=== PATIENT | female | born 1985 | race Caucasian/White ===

== ENCOUNTER 2021-03-09 06:01 | Day surgery (SDC) | payer OTHER, SELFPAY ==
--- NOTE | 2021-02-21 10:00 | HP.PCM_ITS ---
History and Physical Date of Admission: 03/09/21 HPI: The patient is a 35 year old female presenting for pre-operative visit. She is scheduled for hysteroscopy, dilation and curettage, polyp resection and Mirena IUD insertion, for menorrhagia and endometrial polyp on 02/06/2021. Procedure discussed along with risks, benefits and compl ications. Other alternatives discussed for management. Consent form signed? Yes. ? ? PAST MEDICAL HISTORY PAST MEDICAL HISTORY Diagnosis Date ? Fatty liver disease, nonalcoholic ? ? Hypertension ? ? Hypertensive urgency ? ? Incomplete RBBB ? ? Raynaud phenomenon ? ? Tobacco use ? ? ? PAST SURGICAL HISTORY PAST SURGICAL HISTORY Procedure Laterality Date ? NONE ? CURRENT MEDICATIONS Current Outpatient Medications Medication Sig Dispense Refill ? miSOPROStol (CYTOTEC) 200 mcg tablet Insert 2 tablets vaginally night prior to procedure and 2 tablets morning of procedure. Each dose should be in vagina for 6-8 hours. 4 tablet 0 ? lisinopril (ZESTRIL, PRINIVIL) 20 mg tablet Take 1 tablet by mouth once daily. 90 tablet 1 ? amLODIPine (NORVASC) 5 mg tablet Take 1 tablet by mouth once daily. 90 tablet 1 ? varenicline (CHANTIX STARTING MONTH BOX) 0.5 mg (11)- 1 mg (42) tablet Take 1 tablet (0.5 mg) by mouth once daily for 3 days, then 1 tablet (0.5 mg) twice daily for 4 days, then one tablet (1 mg) twice daily. 53 tablet 0 ? varenicline (CHANTIX CONTINUING MONTH BOX) 1 mg tablet Take 1 tablet by mouth twice daily. 60 tablet 1 ? No current facility-administered medications for this visit. ? ? ALLERGIES: Amoxicillin, Hydrocodone, and Penicillin G ? PERSONAL HISTORY: SOCIAL HISTORY Social History ? Tobacco Use ? Smoking status: Current Every Day Smoker ? ? Packs/day: 0.50 ? ? Years: 15.00 ? ? Pack years: 7.50 ? ? Types: Cigarettes ? Smokeless tobacco: Never Used ? Tobacco comment: quit smoking, now social smoker Vaping Use ? Vaping Use: Never used Substance Use Topics ? Alcohol use: Yes ? ? Comment: Seldom ? Drug use: Never ? FAMILY HISTORY: FAMILY HISTORY FAMILY HISTORY Problem Relation Age of Onset ? Arthritis Mother ? ? Hypertension Father ? ? other (gout) Father ? ? Cancer Maternal Grandmother ? ? Skin ? Diabetes Maternal Grandfather ? ? No Known Problems Paternal Grandmother ? ? Hypertension Paternal Grandfather ? ? Diabetes Paternal Grandfather ? ? Prostate Cancer Paternal Grandfather ? ? other (gout) Paternal Grandfather ? ? Colon Cancer Maternal Aunt ? ? Cancer Maternal Uncle ? ? Alcohol/Drug Brother ? ? Drugs ? No Known Problems Daughter ? ? ? REVIEW OF SYMPTOMS: GENERAL: denies fevers or chills ENDOCRINOLOGY: has not been on steroids Cardiology : denies palpitations or chest pain Respiratory: denies SOB or cough Hematology: denies history of prolonged bleeding or easy bruising or VTE Allergy: Denies history of personal or family history of allergy to anesthesia ? PHYSICAL EXAMINATION: ? VITALS: Last menstrual period 01/25/2021. ? GENERAL: The patient is well nourished, well hydrated in no acute distress. , The patient is oriented to time, place, and person. NECK: Supple. No lynphadenopathy, normal thyroid, no thyromegaly. LUNGS: Clear to auscultation bilaterally. no wheezes, rhonchi or rales HEART: Regular rate and rhythm, Normal heart sounds and No murmurs or gallops ? IMPRESSION: Endometrial polyp and menorrhagia ? PLAN: The risks/benefits/alternatives and personal involved for the planned hysteroscopy dilation and curettage, endometrial polyp resection and Mirena IUD insertion were reviewed with the patient. Her questions were answered to her satisfaction and she desires to proceed. Consent was signed. I reviewed with her postop instructions and expectations. ? ? I have reviewed and updated past medical and surgical history, medications and allergies This H&P was completed in my office on 02/21/2021 Assessment & Plan Assessment/Plan (1) Endometrial polyp: (2) Menorrhagia:
[2021-03-09] VITALS (7 sets, daily range): BP systolic 118–150; BP diastolic 66–85; PULSE 74–91; RESP 16–18; TEMP 36.1–36.3; O2SAT 97–98; BMI 33.9
[2021-03-09 06:35] LABS: Internal QC Validated? YES +Cl - CLEAR BKGD; Pregnancy, Urine Negative Negative
[2021-03-09] MEDS: Acetaminophen 500 MG Tablet 1000 MG PO (06:35)
[2021-03-09] MEDS: Celecoxib 200 MG Capsule PO (06:35)
[2021-03-09] MEDS: Lactated Ringers 1,000 ML 100 ML IV (06:48)
--- NOTE | 2021-03-09 07:30 | EMB_PTH ---
PATIENT: BEATRICE CARRILLO LOC: [facility] [place] U#:[id number] AGE/SX: 35/F ROOM: RE03/09/[address]: Dr. Tamika Caballero MD : [id number] BED: DIS: 03/09/2021 SPEC #: [id number] RECD: 03/09/21 11:24 STATUS: CINDI MORA #: [id number] BUCK: 03/09/21 07:[address]: Tamika Caballero DEPT: SURGICAL PATHOLOGY RECD BY: Harris Garcia ENTERED: 03/09/21 11:39 SP TYPE: ENDOM BX/C EDDIE DR: Dr. Adithya Sanders MD Tissues: Endometrium, NOS Procedures: Surgery Specimen Level IV HEADER OPERATION: Hysteroscopy, D & C, polypectomy, Mirena IUD insertion PRE-OP DIAGNOSIS: Endometrial polyp and menorrhagia TISSUE SUBMITTED: Endometrial curettings MICROSCOPIC DIAGNOSIS Endometrial curettings: Disordered proliferative endometrium. Fragments of myometrium. ANGELIQUE:malini 03/10/2021 MICROSCOPIC DESCRIPTION Slides are reviewed. GROSS DESCRIPTION Received in fixative is one container labeled with the patient's name and designated endometrial curettings. The specimen consists of multiple irregular fragments of oakes-pink soft tissue that in aggregate measure 3 x 2.5 x 0.3 cm. The specimen is totally submitted in one cassette. / ANGELIQUE:malini 03/09/21 TC:5 CPT: 42786
--- NOTE | 2021-03-09 07:35 | PCM.DC ---
Discharge Instructions Diet Discharge Diet: No restrictions Activity May resume sexual activity in: 2 weeks Lifting Restrictions: none Dressing / Incision Call your doctor if your incision/area has: Sudden Increased Bleeding and Foul Smelling Discharge Call your doctor if you observe: Fever of 101 or Higher and Using more than 1 pad per hour (for 2 hrs in a row) Follow Up Care Please Follow Up With: Tamika Caballero MD When: 2-4 weeks or as needed. Call [phone] to make an appointment or with any concerns. Test Results: Test results from this visit will be discussed in further detail at your follow-up appointment, if applicable. Discharge Plan Admission Attending Provider: Tamika Caballero Primary Care Provider: Adithya Sanders Discharge Orders/Prescriptions Prescriptions: Continued lisinopril 20 mg Tablet 20 mg PO DAILY RF: 0 amlodipine [Norvasc] 5 mg Tablet 5 mg PO DAILY RF: 0 Referrals / Follow Up: Adithya Sanders MD [Primary Care Provider] - Disposition Disposition (needs filled in before D/C Order can be placed): Home, Self Care
[2021-03-09] MEDS: Lidocaine 1% /Epi 1:100 (50ml) 50 ML VIAL (07:45)
--- NOTE | 2021-03-09 07:55 | OP.PCM_ITS ---
Report of Operation Date of Procedure: 03/09/21 Pre-Operative Diagnosis: Abnormal uterine bleeding, endometrial polyp Post-Operative Diagnosis: same Surgery/Procedure Performed:: hysteroscopy D&C with MIrena IUD insertion Description of Surgical Findings:: lush endometrium with polypoid appearing lesion anterior fundal wall, uterus sounded to 9 cm. Both tubal ostia identified. Normal-appearing cervix and vagina. Surgeon: Tamika Caballero catalyst manufacturing operator: None catalyst manufacturing operator: none Type of Anesthesia: General Anesthesiologist: Sha Bhakta Special Medications: none Specimen's removed: endometrial curettings Drains: none Estimated Blood Loss (mL): 20 Fluids Replaced: 500 Description of Procedure: The patient was taken to the OR where she was prepped and draped in dorsal lithotomy position. The weighted speculum was placed in the vagina and the anterior lip of the cervix was grasped with a single-tooth tenaculum. A paracervical block was administered with [1% lidocaine with 1- 100,000 epinephrine solution]. The cervix was dilated serially with Hegar dilators. The Symphion hysteroscope was placed into the uterine cavity and the above findings were noted. Bilateral tubal ostia [were] identified. The resection device was inserted and the polypoid appearing lesion was resected along with a visual dilation and curettage of the endometrium. The endocervical canal was normal. The instruments were removed from the vagina. The Mirena IUD was then inserted the usual sterile fashion and the strings cut to 2 cm. The specimen was handed off and sent to pathology. All sponge and needle counts were correct. Vaginal sweep was performed by me. The patient was awakened and taken to the recovery room in stable condition. Hysteroscopic fluid deficit 350 cc of normal saline Grafts/Implants Used: MIrena IUD Procedure Start Time: 07:45 Procedure Stop Time: 07:55 Complications none Admit VTE Documentation VTE Present on Admission: No VTE Mechan Device Prophylaxis: SCD's VTE Pharm Prophylaxis ordered?: No Reason prophylaxis not ordered:: Procedure Not Indicated
== END 2021-03-09 08:41 | disposition home or self-care (01) ==
LOC: SDC 06:06 → AC 06:09
PROVIDERS: PCP Family Medicine; Referring Provider Obstetrics & Gynecology; Visit Provider Obstetrics & Gynecology
PROC: 0UB98ZZ Excision of Uterus, Via Natural or Artificial Opening Endoscopic (ICD-10-PCS; CPT 58558; principal; 2021-03-09 07:15)
DX: N84.0 Polyp of corpus uteri (principal); N92.0 Excessive and frequent menstruation with regular cycle; I10 Essential (primary) hypertension; F17.210 Nicotine dependence, cigarettes, uncomplicated; Z79.899 Other long term (current) drug therapy
CPT/HCPCS: 58300; 58558; 81025; 88305; J7120; J2405

== ENCOUNTER 2022-02-24 15:28 | Emergency (ER) | payer OTHER, SELFPAY ==
[2022-02-24 15:29] VITALS: BP 160/76; PULSE 90; RESP 16; TEMP 37; O2SAT 97; BMI 34.3
--- NOTE | 2022-02-24 17:30 | EX.ED.DYSGE1 ---
HPI History of Present Illness Chief Complaint: Wound Check Informant: patient Narrative Narrative: Patient had a red spot on her right volar forearm for almost a week. She thought she might of been bit by something but is not sure. She was seen yesterday at urgent care. They poked a needle in it but did not get any drainage. There was a small amount of bleeding. She was placed on doxycycline. She has had 2 doses of this so far. No fevers chills nausea vomiting. Her concern is just that the erythema around it has grown a bit. No pain in the axilla. Nothing really makes better or worse. [facility] Medical History Alcohol use Back pain Fatty liver History of echocardiogram Hypertension Injury of back Injury of head and neck Leg cramps Marijuana use Smoker Wears glasses Home Medications amlodipine 5 mg tablet (Norvasc) 5 mg PO DAILY 03/03/21 [History Last Taken 03/09/21] lisinopril 20 mg tablet 20 mg PO DAILY 03/03/21 [History Last Taken 03/09/21] Allergy/AdvReac Type Severity Reaction Status Date / Time amoxicillin Allergy Angioedema Verified 02/24/22 15:28 hydrocodone Allergy Angioedema Verified 02/24/22 15:28 Social History Smoking Status: Current every day smoker tobacco type: cigarettes ROS ROS ED Constitutional Constitutional ED: Denies chills, fever(s), subjective or sweats Cardiovascular Cardiovascular: Denies chest pain or palpitations Respiratory/Chest Respiratory/Chest: Denies cough or dyspnea Gastrointestinal Gastrointestinal: Denies nausea or vomiting Musculoskeletal Musculoskeletal: Denies arthralgias or myalgias Integumentary Reports abscess Neurologic Neurologic: Denies paresthesias or weakness Endocrine Endocrinology: Reports other Details: No history of diabetes ; Denies polydipsia or polyuria Hematologic/Lymphatic Hematologic/Lymphatic: Denies easy bleeding or easy bruising Allergic/Immunologic Allergic/Immunologic ED: Denies urticaria EXAM Physical Exam Const Vital Signs: 02/24/22 15:29 Temperature 98.6 F Temperature Source Temporal Pulse Rate 90 Respiratory Rate 16 Blood Pressure 160/76 H Blood Pressure Mean 104 Pulse Ox 97 Oxygen Delivery Method Room Air Positive well nourished and well developed General Appearance ED: well developed and NAD HEENT Reports moist mucous membranes Resp normal respiratory effort Cardio regular rate Extremity Extremity Narrative: Patient does have erythema and an area of about 3 inches x 4-1/2 inches on the right volar medial forearm. There is a small raised area in the center of this this is about 1 to 1-1/2 cm around. There is a small area in the middle that looks like there is a little breakdown of skin. This might have been where it was incised yesterday. There is a little white material behind this. It does not appear to be fluctuant. Distally neurovascularly intact. Neuro Sensorium / Orientation: alert Skin Skin Narrative: See above MDM MDM MDM Narrative Medical decision making narrative: I did a bedside ultrasound. There is a little pocket of material but its only about 1/2 cm deep. It is extremely shallow. The rest of the tissue looks normal. I discussed options with the patient. Procedure: Unroofing of abscess: Area was cleaned with alcohol. I used an 18-gauge needle and unroofed this. We opened up just a little area under it. I was able to express a small amount of purulent material that was possibly 3 to 4 mm around. No significant bleeding. She tolerated this very well. Think patient needs to continue on her antibiotics. She has only been on them for 24 hours. I explained that this cannot be considered failure of antibiotics. It is certainly possible we would have to change but at this point doxycycline is an appropriate choice especially since she has allergy to amoxicillin and possibly cephalosporins. She can clean the area. She can gently scrub it to keep it open. We discussed reasons to return and returning if she is not improving in 72 hours. Discharge Plan Triage Chief Complaint: Wound Check ED Provider: Kevin Kapoor Dx/Rx/DC Orders Clinical Impression: Cutaneous abscess of right upper extremity, Cellulitis of right arm Instructions: ED Abscess Incision And Drainage, ED Cellulitis Prescriptions: No Action lisinopril 20 mg Tablet 20 mg PO DAILY amlodipine [Norvasc] 5 mg Tablet 5 mg PO DAILY Primary Care Provider: Adithya Sanders Referrals: Adithya Sanders MD [Primary Care Provider] - 2 Days for wound check Disposition Disposition: Home, Self Care
[2022-02-24 17:42] VITALS: RESP 16
== END 2022-02-24 17:42 | disposition home or self-care (01) ==
LOC: ED 17:36
PROVIDERS: Emergency Provider Emergency Medicine; PCP Family Medicine; Visit Provider Emergency Medicine
DX: L02.413 Cutaneous abscess of right upper limb (principal); L03.113 Cellulitis of right upper limb; F17.210 Nicotine dependence, cigarettes, uncomplicated; I10 Essential (primary) hypertension; Z79.899 Other long term (current) drug therapy
CPT/HCPCS: 10060; 99282

== ENCOUNTER 2022-05-15 18:52 | Emergency (ER) | payer OTHER, SELFPAY ==
[2022-05-15 18:54] VITALS: BP 146/84; PULSE 113; RESP 16; TEMP 37.4; O2SAT 98; BMI 31.7
--- NOTE | 2022-05-15 18:59 | ED.RN ---
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
--- NOTE | 2022-05-15 20:33 | EDS_ITS ---
HPI History of Present Illness Chief Complaint: Other, Pain/Inj Detail of Chief Complaint: Needlestick Onset/Context/Timing Onset: Today Narrative Narrative: Patient presents with a needlestick to her left hand. She works at the local [employer] and was unloading a box of clothing that been donated. There was a hypodermic needle that punctured her in the left fifth finger. [facility] Medical History Alcohol use Back pain Fatty liver History of echocardiogram Hypertension Injury of back Injury of head and neck Leg cramps Marijuana use Smoker Wears glasses Home Medications amlodipine 5 mg tablet (Norvasc) 5 mg PO DAILY 03/03/21 [History Last Taken 03/09/21] lisinopril 20 mg tablet 20 mg PO DAILY 03/03/21 [History Last Taken 03/09/21] emtricitabine 200 mg-tenofovir disoproxil fumarate 300 mg tablet (Truvada) 1 tab PO DAILY #28 tabs 05/15/22 [Rx Last Taken Unknown] raltegravir 400 mg tablet (Isentress) 400 mg PO BID #56 tabs 05/15/22 [Rx Last Taken Unknown] Allergy/AdvReac Type Severity Reaction Status Date / Time amoxicillin Allergy Angioedema Verified 05/15/22 18:57 hydrocodone Allergy Angioedema Verified 05/15/22 18:57 Social History Smoking Status: Current every day smoker tobacco type: cigarettes ROS ROS ED Constitutional Constitutional ED: Denies chills or fever(s) Eyes Eyes: Denies change in vision or discharge from eye(s) ENT ENT ED: Denies discharge from eye(s), rhinorrhea or sore throat Cardiovascular Cardiovascular: Denies chest pain or palpitations Respiratory/Chest Respiratory/Chest: Denies cough or dyspnea Gastrointestinal Gastrointestinal: Denies abdominal pain, nausea or vomiting Musculoskeletal Musculoskeletal: Reports other Details: Puncture wound to finger ; Denies back pain or extremity pain Integumentary Denies Abrasions or rash Neurologic Neurologic: Denies headache(s) or weakness Psychiatric Psychiatric: Denies anxiety or depression Allergic/Immunologic Allergic/Immunologic ED: Denies lip swelling or urticaria EXAM Physical Exam Const Vital Signs: 05/15/22 18:54 05/15/22 22:17 Temperature 99.4 F H Temperature Source Temporal Pulse Rate 113 H 110 H Respiratory Rate 16 16 Blood Pressure 146/84 H 146/84 H Blood Pressure Mean 104 Pulse Ox 98 98 Oxygen Delivery Method Room Air Positive well nourished and well developed General Appearance ED: well developed HEENT Reports moist mucous membranes Eyes PERRL and EOMs intact bilaterally Chest Wall inspection of chest normal and palpation of chest normal Resp normal respiratory effort and clear to auscultation bilaterally Cardio regular rate and regular rhythm GI normal to inspection, nondistended, normoactive bowel sounds Extremity Extremity Narrative: No obvious visible wound to the fingers. Patient states she cleansed the area very well prior to arrival. Psych mental status grossly normal MDM MDM MDM Narrative Medical decision making narrative: Lab work for exposure obtained. I spoke with Dr. Dunham, infectious diseae, given unknown source. Patient states that she should receive the hepatitis B vaccine in the past. She should be treated with Truvada and Isentress for HIV prophylaxis. I have written a prescription for 4-week course. Pharmacy is unable to tell us what the cost would be to her if it is run through her insurance. She is not comfortable using her insurance as this should be run through [employer] Claim is just not being made tonight we do not do [employer] number to run this through. In light of this she will be given a single dose of these medications here. Her estate planning director will contact the [employer] company tomorrow to get appropriate coverage for these medications. The prescription remains in the hospital pharmacy here for her to fruit or nut picker when available. Lab Data Labs: Laboratory Results - last 24 hr 05/15/22 20:00 Hep Bs Antigen Non-Reactive Hep Bs Antibody Reactive Hepatitis C Antibody Non-Reactive HIV 1&2 Antibody Non-Reactive Discharge Plan Triage Chief Complaint: Other, Pain/Inj ED Provider: Ivy Martinez Dx/Rx/DC Orders Clinical Impression: Needle stick injury of finger Instructions: ED Body Fluid Exposure Not ... Prescriptions: New emtricitabine-tenofovir (TDF) [Truvada] 200-300 mg tablet 1 tab PO DAILY Qty: 28 0RF Isentress 400 mg tablet 400 mg PO BID Qty: 56 0RF No Action lisinopril 20 mg Tablet 20 mg PO DAILY amlodipine [Norvasc] 5 mg Tablet 5 mg PO DAILY Stand Alone Forms: Work Status Form Primary Care Provider: Adithya Sanders Referrals: [facility]Group [facility] Physicians] - As soon as possible Adithya Sanders MD [Primary Care Provider] - Disposition Disposition: Home, Self Care
[2022-05-15 21:25] LABS: HIV - WCH Non-Reactive (Nonreactive); Hepatitis B Surface Antibody Reactive; Hepatitis B Surface Antigen Non-Reactive (Nonreactive); Hepatitis C Antibody Non-Reactive (Nonreactive)
[2022-05-15] MEDS: RALTEGRAVIR POTASSIUM 400 MG TABLET PO (22:13)
[2022-05-15] MEDS: EMTRICITABINE/TENOFOVIR 1 TABLET TABLET PO (22:13)
[2022-05-15 22:17] VITALS: BP 146/84; PULSE 110; RESP 16; O2SAT 98
== END 2022-05-15 22:30 | disposition home or self-care (01) ==
PROVIDERS: Emergency Provider Emergency Medicine; PCP Family Medicine; Visit Provider Emergency Medicine
DX: S61.237A Puncture wound without foreign body of left little finger without damage to nail, initial encounter (principal); I10 Essential (primary) hypertension; F17.210 Nicotine dependence, cigarettes, uncomplicated; W46.0XXA Contact with hypodermic needle, initial encounter; Y99.0 Civilian activity done for income or pay; Z79.899 Other long term (current) drug therapy
CPT/HCPCS: 86703; 86706; 86803; 87340; 99282

== ENCOUNTER → 2022-06-27 | Outpatient (CLI) | payer OTHER, SELFPAY ==
[2022-06-27 18:08] LABS: Alanine Aminotransfer ALT/SGPT 154 U/L (13-56)
[2022-06-27 18:24] LABS: HIV - WCH Non-Reactive (Nonreactive)
[2022-06-27 18:34] LABS: Hepatitis C Antibody Non-Reactive (Nonreactive)
== END | disposition home or self-care (01) ==
PROVIDERS: Physician Assistant Surgical; PCP Family Medicine; Referring Provider Physician Assistant; Visit Provider Physician Assistant
DX: S61.237A Puncture wound without foreign body of left little finger without damage to nail, initial encounter (principal); L76.12 Accidental puncture and laceration of skin and subcutaneous tissue during other procedure; X58.XXXA Exposure to other specified factors, initial encounter
CPT/HCPCS: 36415; 84460; 86703; 86803